=== PATIENT | male | born 2000 | race Caucasian/White ===

== ENCOUNTER 2019-02-26 23:32 | Emergency (ER) | payer MEDICAID ==
[~2019-02-26] VITALS: Ht 165.1 cm; Wt 51.7 kg
[2019-02-26 23:38] VITALS: BP 126/71; Ht 165.1 cm; Wt 51.7 kg
== END 2019-02-27 03:05 | disposition left against medical advice (07) ==
LOC: ED 23:32
DX: Z53.21 Procedure and treatment not carried out due to patient leaving prior to being seen by health care provider (principal)

== ENCOUNTER 2020-04-19 19:49 | Emergency (ER) | payer MEDICAID ==
[~2020-04-19] VITALS: Ht 165.1 cm; Wt 59.0 kg
[2020-04-19 20:02] VITALS: Ht 165.1 cm; Wt 59.0 kg
[2020-04-19 21:17] VITALS: BP 118/67
== END 2020-04-19 21:17 | disposition home or self-care (01) ==
LOC: ED 19:49
DX: S76.911A Strain of unspecified muscles, fascia and tendons at thigh level, right thigh, initial encounter (principal); X58.XXXA Exposure to other specified factors, initial encounter; Y93.89 Activity, other specified; Y92.89 Other specified places as the place of occurrence of the external cause; Y99.8 Other external cause status
CPT/HCPCS: J1885